=== PATIENT | female | born 1955 | race Caucasian/White ===

== ENCOUNTER 2020-03-12 10:18 | Emergency (ER) | payer OTHER, SELFPAY ==
--- NOTE | ~2020-03-12 | XR_ITS ---
XR finger 3rd RT min 2V DATE: 03/12/2020 10:39 INDICATION: Third digit injury, pain TECHNIQUE: 4 views COMPARISON: None FINDINGS: Osteoarthritic changes are noted at the distal interphalangeal joint of the third digit] pa rticularly severely at the distal interphalangeal joint of the fourth digit. No fracture or dislocation, periosteal reaction or bone destruction. No radiopaque soft tissue foreig n body. IMPRESSION: Osteoarthritis Reviewed, dictated and finalized at location A. IMPRESSION: Osteoarthritis
[2020-03-12 10:30] VITALS: BP 143/51; PULSE 93; RESP 18; TEMP 36.6; O2SAT 100
--- NOTE | 2020-03-12 10:32 | ED.UPPEXIN ---
HPI - Extremity Injury (Upper) General Chief Complaint: Extremity Injury, Upper Stated Complaint: right finger sprain Time Seen by Provider: 03/12/20 10:43 Source: patient and RN notes reviewed Mode of arrival: ambulatory Limitations: no limitations History of Present Illness HPI narrative: 65-year-old female presents with concern for finger injury to the third digit of her right hand. Reports yesterday she was talking in a slip cover on a recliner with the elastic bend her finger, possibly backwards. Reports pain, swelling, deformity at the tip of the third digit. Reports history of osteoarthritis, has joint deformities and some digits, however reports she does not typically have a deformity in the third digit of the right hand. Reports she took ibuprofen one time, denies other interventions MD complaint: injury to: right and hand Related Data Allergies Allergy/AdvReac Type Severity Reaction Status Date / Time adhesive Allergy Mild RASH-TO Verified 10/20/19 13:48 TAPE Sulfa (Sulfonamide Allergy Unknown Skin Verified 10/20/19 13:48 Antibiotics) Reaction Review of Systems Review of Systems: Narrative: SKIN: Reports redness to the tip of the third digit of the right hand MUSCULOSKELETAL: Reports pain, deformity to the tip of the third digit of the right hand, reports inability to move the finger at the DIP joint NEUROLOGIC: Reports some numbness to the tip of the third digit of the right hand All systems reviewed & are unremarkable except as noted in HPI and below PMFSH Past Medical History Medical History (Updated 03/12/20 @ 10:52 by Mahsa Hernández NP) Urge incontinence Social History Social History Smoking status: Never smoker Alcohol intake: current Comments At time of signature, agree with nursing past medical, surgical, social and family history. There is no relevant family history pertinent to the presenting complaint Exam Narrative: Exam Narrative: GENERAL: Well-appearing, well-nourished, and in no acute distress. HEAD: Normocephalic EYES: PERRLA, conjunctivae clear NECK: Supple. CHEST: Speaks in full sentences. No respiratory distress. HEART: Regular rate and rhythm. Normal and equal peripheral pulses. EXTREMITIES: Right third digit of hand has normal strength and sensation. DIP joint in a flexed position with erythema mild edema at the joint. No clubbing, cyanosis, or edema noted. No tenderness. Skin intact. Normal digital cascade with flexion of fingers, median, ulnar and radial nerve intact. Normal sensation of side of finger. Can perform 'okay' sign, 'cross over finger test of index and middle fingers' and 'thumbs up' sign. No scissoring. Normal thumb opposition. Good capillary refill and radial pulse. Distal capillary refill ?3 seconds. SKIN: Warn, dry, intact, pink. No rash NEURO: Alert and oriented x3. PSYCH: Normal mood and affect Course Course Emergency Course: Patient to wear splint, elevate, ice, use ibuprofen and follow-up with her primary care provider or specialist if deformity and decreased range of motion continues. Patient is aware of diagnosis, understands and agrees to treatment plan. Anticipatory guidance given. Patient agrees to follow-up as directed and is aware of reasons to seek care at the emergency department. Portions of this record may have been created with voice recognition software Vital Signs Vital signs: Vital Signs Temperature 97.9 F 03/12/20 10:30 Pulse Rate 93 03/12/20 10:30 Respiratory Rate 18 03/12/20 10:30 Blood Pressure 143/51 H 03/12/20 10:30 Pulse Oximetry 100 03/12/20 10:30 Temperature 97.9 F 03/12/20 10:30 Pulse Rate 93 03/12/20 10:30 Respiratory Rate 18 03/12/20 10:30 Blood Pressure 143/51 H 03/12/20 10:30 Pulse Oximetry 100 03/12/20 10:30 Reviewed. MDM - Extremity Injury (Upper) Imaging Data My impression: Images reviewed, interpreted by radiolo
== END 2020-03-12 11:00 | disposition home or self-care (01) ==
PROVIDERS: Emergency Provider Nurse Practitioner; PCP Family Medicine
DX: S04 Injury of cranial nerve (principal); X50.9XXA Other and unspecified overexertion or strenuous movements or postures, initial encounter; E78.00 Pure hypercholesterolemia, unspecified; E03.9 Hypothyroidism, unspecified; F32.9 Major depressive disorder, single episode, unspecified
CPT/HCPCS: 29130; 73140; 99213; G0463

== ENCOUNTER 2020-06-22 07:09 | Outpatient (RCR) | payer OTHER, SELFPAY ==
--- NOTE | 2020-06-22 08:27 | OTOPEVAL ---
OCCUPATIONAL THERAPY EVALUATION REPORT AND DISCHARGE NOTE Lori presents to outpatient OT with right MF extension lag. She is s/p 6 weeks of splinting (splinting ended mid-April). Passively she has hyperextension at the DIP, but at rest she has about 30* extension lag. Issued strengthening exercises for the extensor digitorum and interosseus muscles to help facilitate increased extension at the DIP and through the extensor mechanism. Guarded rehabilitation potential as she may have an overstretched tendon at the DIP. Discharging the patient with HEP. Patient is in agreement with discharge today. She is independent with strengthening HEP. Thank you for referring Lori Linton [facility].?No care plan initiated as she is being discharged with HEP. Please review, sign, date and return this discharge note NAYE. I agree with and certify that the following plan of care is medically necessary. Referring Physician Date Referring Provider: Jordan Knowles MD *OT Outpatient Evaluation Start: 06/22/20 07:28 Therapy Assessment Status Assessment Status Assessment Status Evaluation Outpatient Past Medical History Past Medical History Source of Past Medical History Patient Cardiovascular History Hx Hypercholesterolemia Yes Musculoskeletal History Hx Arthritis Yes Hx Fractures Yes: Right wrist Hx Osteoporosis Yes Endocrine History Hx Hypothyroidism Yes Reproductive History Hx Post Menopausal Yes Psychosocial History Hx Depression Yes Evaluation Information Problem Diagnosis Non-bony mallet finger, right 3rd digit Onset 03/11/2020 Subjective Information Patient reports that after the Query Text:As Reported By Patient/ initial injury she wore a Family splint on the DIP that held the joint in extension x6 weeks. She does note that there was a 7-10 day delay between the initial injury and receiving the splint. She states she did not have any therapy after this. She states that functionally the finger gets in the way when she tries to use her right, dominant hand to grab objects. Pain Assessment Timing of Pain Assessment Timing of Pain Assessment Assessment Pain Scale Pain Scale Used Numeric (1 - 10) Self Report Pain Assessment Right Finger, Middle Reported Pain Level 0 Pain Frequency Chronic,Intermittent Lowest Pain Intensity 0 Greatest Pain Intensity 3 Pain Aggravating Factors ADL's Pain Score Pain Score 0: Self Report Upper Extremity Range of Motion
== END 2020-06-23 09:35 | disposition home or self-care (01) ==
LOC: ANHOT 07:09
PROVIDERS: PCP Family Medicine; Visit Provider Plastic Surgery
DX: M20.011 Mallet finger of right finger(s) (principal)
CPT/HCPCS: 97110; 97165

== ENCOUNTER 2020-09-08 13:52 | Outpatient (CLI) | payer OTHER, SELFPAY ==
--- NOTE | ~2020-09-08 | DEXA_ITS ---
Bone Density Report Name: Lori Linton Age: 65 Sex: Female Ethnicity: White Date of : 1955 Indication: osteopenia; prior fracture; cancer; Referring Provider: JORDAN WOODALL Study: Bone densitometry was performed. Exam Date: September 08, 2020 Accession number: [id number] Bone Density: Region BMD T-score Z-score Classification AP Spine (L1-L4) 0.925 -1.1 0.6 Osteopenia Femoral Neck (Left) 0.508 -3.1 -1.6 Osteoporosis Total Hip (Left) 0.698 -2.0 -0.8 Osteopenia Total Hip Bilateral Avg 0.721 -1.8 -0.6 Osteopenia Femoral Neck (Right) 0.572 -2.5 -1.0 Osteoporosis Total Hip (Right) 0.743 -1.6 -0.4 Osteopenia World Health Organization criteria for BMD impression classify patients as: Normal (T-score at or above -1.0), Osteopenia (T-score between -1.0 and -2.5), or Osteoporosis (T-score at or below -2.5). 10-year Fracture Risk: FRAX not reported because: Some T-score for Spine Total or Hip Total or Femoral Neck at or below -2.5 Previous Exams: Region Exam Age BMD T-score BMD Change BMD Change Date g/cm2 vs Baseline vs Previous AP Spine(L1-L4) 09/08/2020 65 0.925 -1.1 -0.129(-12.3%) 0.005(0.6%) 05/11/2015 60 0.920 -1.2 -0.134(-12.7%) -0.113(-10.9%) 07/24/2009 54 1.033 -0.1 -0.022(-2.1%) 0.021(2.1%) 07/07/2006 51 1.012 -0.3 -0.043(-4.1%)* -0.043(-4.1%)* 06/28/2004 49 1.055 0.1 Total Hip(Left) 09/08/2020 65 0.698 -2.0 -0.106(-13.2%) -0.064(-8.4%)* 05/11/2015 60 0.762 -1.5 -0.042(-5.2%)# 0.037(5.1%)# 07/24/2009 54 0.725 -1.8 -0.079(-9.9%)* -0.053(-6.8%)* 07/07/2006 51 0.777 -1.4 -0.027(-3.3%) -0.027(-3.3%) 06/28/2004 49 0.804 -1.1 Total Hip(Right) 09/08/2020 65 0.743 -1.6 -0.061(-7.6%)# -0.033(-4.2%)* 05/11/2015 60 0.775 -1.4 -0.028(-3.5%)# 0.014(1.8%)# 07/24/2009 54 0.762 -1.5 -0.042(-5.2%)* -0.039(-4.8%)* 07/07/2006 51 0.801 -1.2 -0.003(-0.4%) -0.003(-0.4%) 06/28/2004 49 0.804 -1.1 *Denotes significance at 95% confidence level, LSC for AP Spine = 0.022 g/cm2, LSC for Total Hip = 0.027 g/cm2 Clinical Information Provided by Patient: Has had a low trauma fracture Has used the following medications: Vitamin D Has the following medical conditions: Cancer Patient maximum height was 64.5 Menopause Age: 47 Drinks caffeinated beverages Onset of menses at age 13 Number of children 2 Impression: The patient has established osteoporosis, based on
--- NOTE | ~2020-09-08 | MM_ITS ---
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 CAD analysis was submitted and interpreted. COMPARISON: 05/04/2018 bilateral diagnostic digital mammogram 05/29/2017, 05/17/2016 bilateral digital screening mammogram examinations BREAST PARENCHYMAL COMPOSITION: There are scattered areas of fibroglandular density. FINDINGS: Postoperative scarring and retraction secondary to right partial mastectomy. No interval suspicious mass, new architectural distortion, malignant calcification, skin thickening o r new retraction is evident. Minimal benign calcification. IMPRESSION: 1. No mammographic evidence of malignancy or significant change since 05/04/2018 over 05/17/2016 2. Routine annual mammographic screening is recommended. BI-RADS Category 2: Benign finding(s). Reviewed, dictated and finalized at location A. FIGHTER
== END 2020-09-08 13:53 | disposition home or self-care (01) ==
LOC: ANHIMG 13:57
PROVIDERS: PCP Family Medicine; Visit Provider Family Medicine
DX: C50.911 Malignant neoplasm of unspecified site of right female breast (principal); R92.0 Mammographic microcalcification found on diagnostic imaging of breast; M81.0 Age-related osteoporosis without current pathological fracture; M16.0 Bilateral primary osteoarthritis of hip; Z90.11 Acquired absence of right breast and nipple
CPT/HCPCS: 77062; 77066; 77080; G0279

== ENCOUNTER 2021-05-18 12:15 | Emergency (ER) | payer MEDICARE, SELFPAY ==
[2021-05-18 12:22] VITALS: BP 147/68; PULSE 107; RESP 20; TEMP 36.5; O2SAT 100
--- NOTE | 2021-05-18 12:56 | ED.URI ---
HPI - URI/Sore Throat General Chief Complaint: Upper Respiratory Infection Stated Complaint: cough Time Seen by Provider: 05/18/21 12:48 Source: patient and RN notes reviewed Mode of arrival: ambulatory Limitations: no limitations History of Present Illness HPI Narrative: Patient presents today with a 14-day history of rhinorrhea, sinus pressure, cough, sneezing. Denies fever or shortness of breath. No history of asthma or COPD. She has been occasionally taking Benadryl with mild relief. She recently had a negative COVID-19 test. She has been vaccinated against COVID-19. No recent antibiotic use. MD elicited complaint: rhinorrhea, nasal congestion and sinus pain Related Data Allergies Allergy/AdvReac Type Severity Reaction Status Date / Time adhesive Allergy Mild RASH-TO Verified 03/28/21 09:57 TAPE Sulfa (Sulfonamide Allergy Unknown Skin Verified 03/28/21 09:57 Antibiotics) Reaction alendronate sodium AdvReac Severe heartburn, Verified 03/28/21 09:57 [From Fosamax] muscle aches Review of Systems Review of Systems: CONSTITUTIONAL: Denies body aches, fever, chills, or sweats. EYES: Denies visual changes, redness, or discharge. ENT: Denies sore throat, or otalgia.+ Congestion, rhinorrhea, sinus pressure, sneezing CARDIOVASCULAR: Denies chest pain, palpitations, or edema. RESPIRATORY: Denies dyspnea.+ Cough GASTROINTESTINAL: Denies abdominal pain, nausea, vomiting, or diarrhea. GENITOURINARY: Denies dysuria or hematuria. SKIN: Denies rash, itching, or wounds. MUSCULOSKELETAL: Denies back pain, joint pain, or myalgia. NEUROLOGIC: Denies headache, numbness, tingling, or weakness. PSYCH: Denies depression or anxiety. [facility] Past Medical History Medical History (Updated 05/18/21 @ 12:59 by Salima Ortiz, VIDEO GAME TESTER, ) Osteoporosis Urge incontinence Family History Family History Father Family history of elevated blood lipids Family history of lung cancer Hypertension Family history of cardiovascular disease Mother Hypertension Family history of elevated blood lipids Family history of cardiovascular disease Social History Social History Alcohol intake: current Spiritual care concerns: No Comments At time of signature, I have reviewed and agree with nursing past medical, surgical, social and family history unless otherwise noted. Please see nursing chart for further information. There is no relevant family history pertinent to the presenting complaint Exam Narrative: GENERAL: Well-appearing, well-nourished, and in no acute distress. HEAD: Normocephalic, atraumatic. EYES: EOMI. No redness or drainage. Conjunctivae normal. ENT: Mucous membranes pink and moist. Nares mildly congested. No rhinorrhea. TMs normal bilaterally. Throat normal. Uvula midline. Mild tenderness to the frontal maxillary sinuses. NECK: Normal AROM. Supple. No lymphadenopathy. CHEST: No respiratory distress. Clear to auscultation. HEART: Regular rate and rhythm. No murmur appreciated. Normal peripheral pulses. EXTREMITIES: Normal range of motion. No edema. SKIN: Warm, dry, no rash. Capillary refill normal. Normal skin turgor. NEURO: No focal deficits. Alert and oriented x3. Gait steady. PSYCH: Normal affect. No signs of depression or anxiety. Course Vital Signs Vital signs: Vital Signs Temperature 97.7 F 05/18/21 12:22 Pulse Rate 107 H 05/18/21 12:22 Respiratory Rate 20 05/18/21 12:22 Blood Pressure 147/68 H 05/18/21 12:22 Pulse Oximetry 100 05/18/21 12:22 Temperature 97.7 F 05/18/21 12:22 Pulse Rate 107 H 05/18/21 12:22 Respiratory Rate 20 05/18/21 12:22 Blood Pressure 147/68 H 05/18/21 12:22 Pulse Oximetry 100 05/18/21 12:22 Reviewed. Pt has been instructed to follow up with her PCP regarding her elevated blood pressure today. MDM - URI/Sore Throat Differe
== END 2021-05-18 13:04 | disposition home or self-care (01) ==
PROVIDERS: Emergency Provider Nurse Practitioner; PCP Family Medicine
DX: J32.9 Chronic sinusitis, unspecified (principal); M81.0 Age-related osteoporosis without current pathological fracture
CPT/HCPCS: 99213; G0463

== ENCOUNTER 2021-10-01 10:02 | Outpatient (CLI) | payer MEDICARE, SELFPAY ==
--- NOTE | ~2021-10-01 | MM_ITS ---
EXAMINATION: MM screening narciso BI w clyde HISTORY: Screening TECHNIQUE: Craniocaudal and mediolateral oblique 3-D tomosynthesis images were obtained and synthetic 2-D images were generated. CAD analysis was submitted and interpreted. COMPARISON: Comparison to multiple prior studies sequentially, with oldest reviewed study dated 05/11. BREAST PARENCHYMAL COMPOSITION: Breast composed of scattered areas of fibroglandular density. FINDINGS: There is no evidence of suspicious mass, calcification, or architectural distortion to sugg est malignancy in either breast. There has been no suspicious interval change. IMPRESSION: 1. No mammographic evidence of malignancy. 2. Recommend routine screening mammography in one year. BI-RADS Category 1: Negative Reviewed, dictated and finalized at location A. PICKER
== END 2021-10-01 10:03 | disposition home or self-care (01) ==
LOC: ANHIMG 10:05
PROVIDERS: PCP Nurse Practitioner; Visit Provider Nurse Practitioner
DX: Z12.31 Encounter for screening mammogram for malignant neoplasm of breast (principal)
CPT/HCPCS: 77063; 77067

== ENCOUNTER → 2021-10-03 11:08 | Outpatient (CLI) | payer MEDICARE, SELFPAY ==
--- NOTE | ~2021-10-03 | US_ITS ---
EXAMINATION: US pelvic complete w TV DATE: 10/03/2021 11:33 INDICATION: Pelvic pain TECHNIQUE: Multiple transabdominal and endovaginal sonographic images of the pelvis were obtained. COMPARISON: None. FINDINGS: The uterus measures 6.9 x 3.3 x 4.2 cm. The endometrial complex measures 6 mm. There is flu id in the endometrial canal. The right ovary measures 1.3 x 0.7 x 1.1 cm. The left ovary measures 2.6 x 2.4 x 1.5 cm. There is normal vascular flow in the ovaries. There is no free fluid in the pelvis. IMPRESSION: 1. No sonographic correlate for the patient's symptoms. 2. Small amount of fluid within the endometrial canal of unclear etiology or significance. Reviewed, dictated and finalized at location A. WORKER IMPRESSION: 1. No sonographic correlate for the patient's symptoms. 2. Small amount of fluid within the endometrial canal of unclear etiology or si gnificance.
== END ==
PROVIDERS: PCP Nurse Practitioner; Visit Provider Nurse Practitioner
DX: R10.2 Pelvic and perineal pain (principal)
CPT/HCPCS: 76830; 76856

== ENCOUNTER 2021-10-22 14:55 | Outpatient (CLI) | payer MEDICARE, SELFPAY ==
--- NOTE | ~2021-10-22 | CT_ITS ---
EXAMINATION: CT abdomen pelvis wo con DATE: 10/22/2021 15:12 INDICATION: Right pelvic pain and hematuria TECHNIQUE: Computed tomography (CT) of the abdomen and pelvis was performed without intravenous contr ast. The dose-length product (DLP) was 303.13 mGy-cm. Automated exposure control and iterative recons truction technique were employed. COMPARISON: None FINDINGS: The lung bases are clear. The heart size is normal. There is a moderate-sized sliding hiata l hernia. Punctate calcifications in an otherwise normal spleen likely represent healed granulomatous disease. The liver, pancreas, gallbladder, and right adrenal gland are normal. There is a 1.5 cm low -density mass of the left adrenal gland, consistent with an adenoma. The kidneys are unremarkable. No stones are identified in the kidneys, ureters, or bladder. There is no hydronephrosis or hydroureter . No pathologically enlarged abdominal or pelvic lymph nodes are identified. There is no free intrape ritoneal gas or evidence of bowel obstruction. There is mild lumbar spondylosis. IMPRESSION: 1. No CT correlate for the patient's symptoms. Reviewed, dictated and finalized at location B. PMENT MAN
== END 2021-10-22 14:56 | disposition home or self-care (01) ==
LOC: ANHIMG 14:57
PROVIDERS: PCP Nurse Practitioner; Visit Provider Nurse Practitioner
DX: R10.2 Pelvic and perineal pain (principal); R31.9 Hematuria, unspecified
CPT/HCPCS: 74176

== ENCOUNTER → 2022-03-20 09:34 | Outpatient (CLI) | payer MEDICARE, SELFPAY ==
--- NOTE | ~2022-03-20 | XR_ITS ---
XR foot RT min 3V DATE: 03/20/2022 10:05 INDICATION: Right heel pain TECHNIQUE: 4 views COMPARISON: None FINDINGS: Slight plantar calcaneal enthesopathy. No fracture or dislocation, periosteal reaction or b one destruction of the right foot. Osteopenia. IMPRESSION: Slight plantar calcaneal enthesopathy Osteopenia Reviewed, dictated and finalized at location B.
== END ==
PROVIDERS: PCP Nurse Practitioner; Visit Provider Nurse Practitioner
DX: M85.871 Other specified disorders of bone density and structure, right ankle and foot (principal); M77.31 Calcaneal spur, right foot
CPT/HCPCS: 73630

== ENCOUNTER 2022-06-22 12:59 | Emergency (ER) | payer MEDICARE, SELFPAY ==
--- NOTE | ~2022-06-22 | XR_ITS ---
XR foot RT min 3V DATE: 06/22/2022 13:48 INDICATION: Diffuse foot pain for 3 months TECHNIQUE: 4 views COMPARISON: None FINDINGS: No fracture or dislocation, periosteal reaction or bone destruction. Joint spaces are prese rved. No erosive change. IMPRESSION: Negative Reviewed, dictated and finalized at location A. IMPRESSION: Negative
[2022-06-22 13:09] VITALS: BP 146/68; PULSE 91; RESP 16; TEMP 36.5; O2SAT 99
--- NOTE | 2022-06-22 13:14 | ED.EXTPRO ---
HPI - Extremity Problem General Chief complaint: Extremity Injury, Lower Stated complaint: right foot pain Time Seen by Provider: 06/22/22 14:04 Source: patient and RN notes reviewed Mode of arrival: ambulatory Limitations: no limitations History of Present Illness HPI Narrative: 67-year-old female presents with concern for foot pain. She reports she has had pain since March this started in her heel and has now moved to the lateral foot. Reports she had an x-ray and was told she has osteoporosis. She reports she has an appointment with a vendor management associate, however she began having worsening pain, swelling. She denies any new injury MD Complaint: extremity pain Related Data Allergies Allergy/AdvReac Type Severity Reaction Status Date / Time adhesive Allergy Mild RASH-TO Verified 06/22/22 13:10 TAPE Sulfa (Sulfonamide Allergy Unknown Skin Verified 06/22/22 13:10 Antibiotics) Reaction alendronate sodium AdvReac Severe heartburn, Verified 06/22/22 13:10 [From Fosamax] muscle aches Review of Systems Review of Systems: CONSTITUTIONAL: Denies malaise, chills, sweats, or fever. CARDIOVASCULAR: Denies chest pain, palpitations, or edema. RESPIRATORY: Denies cough or dyspnea. SKIN: Denies rash or itching, bruising, redness MUSCULOSKELETAL: Reports right foot pain and swelling NEUROLOGIC: Denies numbness, weakness All systems reviewed & are unremarkable except as noted in HPI and below PMFSH Past Medical History Medical History Osteoporosis Urge incontinence Family History Family History Father Family history of elevated blood lipids Family history of lung cancer Hypertension Family history of cardiovascular disease Mother Hypertension Family history of elevated blood lipids Family history of cardiovascular disease Social History Social History Alcohol intake: current Spiritual care concerns: No Comments At time of signature, agree with nursing past medical, surgical, social and family history. There is no relevant family history pertinent to the presenting complaint Exam Narrative: GENERAL: Well-appearing, well-nourished, and in no acute distress. HEAD: Normocephalic, atraumatic. EYES: PERRLA, conjunctivae clear NECK: Supple. CHEST: Speaks in full sentences. No respiratory distress. HEART: Regular rate and rhythm. Normal and equal peripheral pulses. EXTREMITIES: Right ankle, foot, digits have grossly normal strength and sensation, grossly normal range of motion. Mild medial edema without erythema or ecchymosis. 5/5 strength with ankle or digit flexion and extension. Normal sensation with sensitivity to light touch and pain. Medial foot tenderness. No open wounds, no skin tenting, no devitalized tissue or atrophy, no trophic changes, no obvious deformity, alignment normal, nearby joints and structures intact. Distal pulses palpable and equal bilaterally, skin warm, dry, pink. Capillary refill less than 3 seconds. SKIN: Warm, dry, no rash. NEURO: Alert and oriented x3. PSYCH: Normal mood and affect Course Course Emergency Course: Patient is aware of diagnosis, understands and agrees to treatment plan. Anticipatory guidance given. Patient agrees to follow-up as directed and is aware of reasons to seek care at the emergency department. Portions of this record may have been created with voice recognition software Level of Care: Express Care Visit Vital Signs Vital signs: Vital Signs Temperature 97.7 F 06/22/22 13:09 Pulse Rate 91 06/22/22 13:09 Respiratory Rate 16 06/22/22 13:09 Blood Pressure 146/68 H 06/22/22 13:09 Pulse Oximetry 99 06/22/22 13:09 Oxygen Delivery Room Air 06/22/22 13:09 Temperature 97.7 F 06/22/22 13:09 Pulse Rate 91 06/22/22 13:09 Respiratory Rate 16 06/22/22 13:09 Bl
== END 2022-06-22 14:06 | disposition home or self-care (01) ==
PROVIDERS: Emergency Provider Nurse Practitioner
DX: M79.671 Pain in right foot (principal); M81.0 Age-related osteoporosis without current pathological fracture
CPT/HCPCS: 73630; 99213; G0463

== ENCOUNTER 2023-10-14 12:49 | Outpatient (CLI) | payer MEDICARE, SELFPAY ==
--- NOTE | ~2023-10-14 | MM_ITS ---
EXAMINATION: MM screening narciso BI w clyde HISTORY: Screening TECHNIQUE: Craniocaudal and mediolateral oblique 3-D tomosynthesis images were obtained and synthetic 2-D images were generated. CAD analysis was submitted and interpreted. COMPARISON: Comparison to multiple prior studies sequentially, with oldest reviewed study dated 05/11. BREAST PARENCHYMAL COMPOSITION: Not dense: There are scattered areas of fibroglandular density.. FINDINGS: There is no evidence of suspicious mass, calcification, or architectural distortion to sugg est malignancy in either breast. There has been no suspicious interval change. IMPRESSION: 1. No mammographic evidence of malignancy. 2. Recommend routine screening mammography in one year. BI-RADS Category 1: Negative Reviewed, dictated and finalized at location A. UTING CONSULTANT
--- NOTE | ~2023-10-14 | DEXA_ITS ---
Bone Density Report Name: EFREN ALONSO Age: 68 Sex: Female Ethnicity: White Date of : 1955 Indication: osteopenia; monitoring treatment; postmenopausal Referring Provider: DINORAH VARGAS Study: Bone densitometry was performed. Exam Date: October 14, 2023 Accession number: [id number] Bone Density: Region BMD T-score Z-score Classification AP Spine(L1-L4) 0.952 -0.9 1.1 Normal Femoral Neck (Left) 0.551 -2.7 -1.0 Osteoporosis Total Hip (Left) 0.785 -1.3 0.1 Osteopenia Femoral Neck (Right) 0.568 -2.5 -0.9 Osteoporosis Total Hip (Right) 0.785 -1.3 0.1 Osteopenia Total Hip Mean 0.785 -1.3 0.1 Osteopenia World Health Organization criteria for BMD impression classify patients as: Normal (T-score at or above -1.0), Osteopenia (T-score between -1.0 and -2.5), or Osteoporosis (T-score at or below -2.5). 10-year Fracture Risk: FRAX not reported because: Some T-score for Spine Total or Hip Total or Femoral Neck at or below -2.5 Treated for osteoporosis Previous Exams: Region Exam Age BMD T-score BMD Change BMD Change Date g/cm2 vs Baseline vs Previous AP Spine (L1-L4) 10/14/2023 68 0.952 -0.9 0.032 (3.5%)* 0.027 (2.9%)* 09/08/2020 65 0.925 -1.1 0.005 (0.6%) 0.005 (0.6%) 05/11/2015 60 0.920 -1.2 Total Hip(Left) 10/14/2023 68 0.785 -1.3 0.024 (3.1%) 0.087 (12.5%)* 09/08/2020 65 0.698 -2.0 -0.064 (-8.4%) -0.064 (-8.4%) 05/11/2015 60 0.762 -1.5 Total Hip(Right) 10/14/2023 68 0.785 -1.3 0.010 (1.3%) 0.042 (5.7%)* 09/08/2020 65 0.743 -1.6 -0.033 (-4.2%) -0.033 (-4.2%) 05/11/2015 60 0.775 -1.4 *Denotes significance at 95% confidence level, LSC for AP Spine = 0.022 g/cm2, LSC for Total Hip = 0.027 g/cm2 Clinical Information Provided by Patient: Is being treated for osteoporosis Has used the following medications: Vitamin D Patient maximum height was 64.5 Menopause Age: 47 No regular weight bearing exercise Drinks caffeinated beverages Onset of menses at age 14 Number of children 2 Missed period for more than 6 months in a row Impression: The patient has osteoporosis, based on the Left Femoral Neck T-score. No significant bone loss was observed. Discussion: PATIENT UNDER TREATMENT WITH NO SIGNIFICANT BMD LOSS SINCE LAST EXAM. In an untreated patient, BMD typically declines with age. A lack of decline or gain is usually a sign that treatment is efficacious and fracture risk i
== END 2023-10-14 12:50 | disposition home or self-care (01) ==
PROVIDERS: PCP Family Medicine; Visit Provider Physician Assistant
DX: Z12.31 Encounter for screening mammogram for malignant neoplasm of breast (principal); M81.0 Age-related osteoporosis without current pathological fracture; M85.852 Other specified disorders of bone density and structure, left thigh; M85.851 Other specified disorders of bone density and structure, right thigh
CPT/HCPCS: 77063; 77067; 77080

== ENCOUNTER 2024-10-19 14:29 | Outpatient (CLI) | payer MEDICARE, SELFPAY | END 2024-10-19 14:30 | disposition home or self-care (01) | LOC: ANHIMG 14:30 | PROVIDERS: PCP Family Medicine; Visit Provider Student in an Organized Health Care Education/Training Program | DX: Z12.31 Encounter for screening mammogram for malignant neoplasm of breast (principal) | CPT/HCPCS: 77063; 77067 ==

== ENCOUNTER 2025-02-15 12:48 | Outpatient (CLI) | payer MEDICARE, SELFPAY ==
--- NOTE | ~2025-02-15 | CT_ITS ---
EXAMINATION: CT sinus wo con DATE: 02/15/2025 13:06 INDICATION: Chronic maxillary sinusitis TECHNIQUE: Computed tomography (CT) of the paranasal sinuses was performed without intravenous contra st. Coronal reconstructions were obtained. Automated exposure control and iterative reconstruction te chnique were employed. The dose-length product was 287.09 mGy-cm. COMPARISON: None FINDINGS: There is minimal mucoperiosteal thickening at the bilateral ethmoid sinuses. The bilateral frontal, s phenoid and maxillary sinuses are normal. Bilateral ostiomeatal units are patent. Nasal septum is mid line. There is alex bullosa of the right middle turbinate. Mastoid air cells and middle ear cavitie s are clear. Orbits are normal. IMPRESSION: 1. Minimal mucoperiosteal thickening at the bilateral ethmoid sinuses. Reviewed, dictated and finalized at location B.
== END 2025-02-15 12:49 | disposition home or self-care (01) ==
LOC: MICIMG 12:48
PROVIDERS: PCP Family Medicine; Visit Provider Family Medicine
DX: J32.0 Chronic maxillary sinusitis (principal); J32.2 Chronic ethmoidal sinusitis
CPT/HCPCS: 70486

== ENCOUNTER 2025-03-25 07:49 | Outpatient (CLI) | payer MEDICARE, SELFPAY ==
--- OUTSIDE RECORDS SUMMARY | 2025-03-25 07:52 | XMS_ITS | Encounter Summary ---
Author Organization [facility] Address [address] [place] [address] Care Team Providers Care Wrapping Checker Name Role Phone Cynthia Cheung NP Primary Care Provider [phone] [phone] Baldomero Gibson MD Primary Care Provider [phone]- [phone] Encounter Details Date Type Department Care Team (Late st Contact Info) Description 10/12/2021 [place] Message Enc [facility] Family Medicine [facility] [address] [id number] Cynthia Cheung NP [address] [address] follow up Social History Tobacco Use Types Packs/Day Years Used Date Smoking Tobacco: Never Smokeless Tobacco: Never Alcohol Use Standard Drinks/Week Comments Not Currently 0 (1 standard drink = 0.6 oz pur e alcohol) PHQ-2 Answer Date Recorded PHQ-2 Score - If the patient scores above 3, please move on to questions 3-9 0 09/19/2021 Comments No Sex and Gender Information Value Date Recorded Sex Assigned at Not on file Legal Sex Female 12:53 PM CDT Gender Identity Female 09/26/2021 1:17 PM ACCOUNT MANAGER B2B Sexual Orientation Not on file COVID-19 Exposure Response Date Recorded In the last 10 days, have yo u been in contact with someone who was confirmed or suspected to have Coronavirus/COVID-19? No / Unsure 09/26/2021 1:41 PM ACCOUNT MANAGER B2B documented as of this encounter Plan of Treatment Not on file documented as of this encounter Visit Diagnoses Not on filedocumented in this encounter Additional Health Concerns Assessment Noted Time PHQ-9 Depression Total Score: 0 09/19/19 11:52 AM ACCOUNT MANAGER B2B documented as of this encounter Care Teams Wrapping Checker Relationship Specialty Start Date End Date Cynthia Cheung NP [address] [place] [address] PCP - General NURSE PRACTITIONER 08/30/21 03/17/23 Baldomero Gibson MD [address] [place] [address] PCP - General FAMILY PRACTICE 03/18/23 documented as of this encounter
--- OUTSIDE RECORDS SUMMARY | 2025-03-25 07:52 | XMS_ITS | Clinical Summary ---
Author Organization [facility] Address [address] [place] [address] Care Team Providers Care Drafting Clerk Name Role Phone Baldomero Gibson MD Primary Care Provider [phone]- [phone] Allergies Active Allergy Reactions Criticality Noted Date Comments Alendronate Sodium Joint Pain,Leg Pain 09/26/19 22 Sulfa Antibiotics Other (see comment) 2 Tape Itching,Rash Low 09/26/2021 Medications buPROPion XL 300 MG 24 hr tablet Take 1 tablet (300 mg total) by mouth daily. 2 Active citalopram 20 MG tablet Take 1 tablet (20 mg total) by mouth daily. 2 Active vitamin D2, ergocalciferol, (DRISDOL) 1.25 mg capsuleIndications: Vitamin D deficiency TAKE 1 CAPSULE BY MOUTH EVERY 7 DAYS 13 capsule 2 3 Active levothyroxine (SYNTHROID) 50 MCG tabletIndications:A cquired hypothyroidism TAKE 1 TABLET BY MOUTH DAILY 100 tablet 2 3 Active simvastatin (ZOCOR) 20 MG tabletIndications:M ixed hyperlipidemia TAKE 1 TABLET BY MOUTH DAILY 100 tablet 2 3 Active Active Problems Problem Noted Date Diagnosed Date Pain of right heel 03/20/2022 Anxiety 09/27/2021 Osteoporosis 09/27/2021 Hx of breast cancer 09/27/2021 Hyperlipemia 09/27/2021 Hypothyroidism 09/27/2021 Resolved Problems Problem Noted Date Diagnosed Date Resolved Date Osteopenia 09/27/2021 02/05/2023 Immunizations Immunization Administration Dates Next Due Hepatitis B (Generic: Adult) 12/25/2004,06/19/20 04,05/22/2004 Influenza (Generic) 06/14/2019 Pneumococcal (Pneumovax 23) 09/26/2021 Tdap (Generic) 04/08/2016,06/19/2006 Zoster (Zostavax) 93902 Unt/0.65Ml 06/02/2017 Family History Medical History Relation Comments Heart Father Heart Mother Heart Disease Mother Hypertension Mother Vision loss Mother Relation Status Comments Father Mother Alive Social History Tobacco Use Types Packs/Day Years Used Date Smoking Tobacco: Never Passive Smoke Exposure: Past Smokeless Tobacco: Never Tobacco Cessation:Counseling Given: No Alcohol Use Standard Drinks/Week Comments Not Currently 0 (1 standard drink = 0.6 oz pur e alcohol) PHQ-2 Answer Date Recorded Patient Health Questionnaire-2 Score 0 02/05/2023 Comments No Sex and Gender Information Value Date Recorded Sex Assigned at Not on file Legal Sex Female 12:53 PM CDT Gender Identity Female 09/26/2021 1:17 PM HEAT TREATING BLUER Sexual Orientation Not on file Last Filed Vital Signs Vital Sign Reading Time Taken Comments Blood Pressure 157/78 02/05/2023 2:40 PM CDT Pulse 92 02/05/2023 2:40 PM CDT Temperature 37.4 C (99.4 F) 02/05/2023 2:40 PM CDT Respiratory Rate 18 09/12/2022 8:35 AM HEAT TREATING BLUER Oxygen Saturation 100% 02/05/2023 2:40 PM CDT Inhaled Oxygen Concentration - - Weight 64 kg (141 lb) 02/05/2023 2:40 PM CDT Height 162.6 cm (5' 4) 09/12/2022 8:35 AM HEAT TREATING BLUER Body Mass Index 24.2 09/12/2022 8:35 AM HEAT TREATING BLUER Plan of Treatment Health Maintenance Due Date Last Done Comments Zoster Vaccines (2 of 3) 07/28/2017 06/02/2017 Pneumococcal Vaccine: 50+ Years (2 of 2 - PCV) 09/26/2022 09/26/2021 Annual Medicare Wellness Visit 01/23/2023 01/22/2022 COVID-19 Vaccine ( season) 2024 06/25/2021, 10/27/2020, 09/29/2020 PHQ-2 (Physician [place]) 08/18/2024 Colorectal Cancer Screening FIT-DNA (3 Years) 10/04/2024 10/04/2021, 10/04/2021 Mammogram Screening 10/11/2024 10/11/2022, 10/01/2021, 09/08/2020, Additional history exists DTaP, Tdap and Td Vaccines (3 - Td or Tdap) 04/08/2026 04/08/2016, 06/19/2006 RSV Immunization or 60+ Years (1 - 1-dose 75+ series) 01/02/2031 Colorectal Cancer Screening Colonoscopy (10 Years) Discontinued 08/25/2006 Hepatitis C Completed 02/19/2022 Dexa Scan (General) Completed 10/11/2022, 09/08/2020, 09/08/2020, Additional history exists Meningococcal B Vaccine Aged Out No l onger eligible based on patient's age to complete this topic Meningococcal Vaccine Aged Out No kenny wendi eligible based on patient's age to complete this topic RSV Immunizations Under 20 Months Aged Out No longer eligible based on patient's age to complete this topic Procedures Procedure Name Priority Date/Time Associated Diagnosis Comments BONE DENSITY/DEXA Routine 10/11/2022 1:3 7 PM HEAT TREATING BLUER Osteoporosis, unspecified osteoporosis type, unspecified pathological fracture presence MG SCREENING W KYUNG KARIN DIGI Routine 10/11/2022 1:34 PM HEAT TREATING BLUER Encounter for screening mammogram for malignant neoplasm of breast HEPATITIS C ANTIBODY W/RFX TO HCV RNA 02/19/2022 1:54 PM CDT COLOGUARD (EXACT SCIENCE) Routine 10/04/2021 6:45 PM HEAT TREATING BLUER Screen for colon cancer COLONOSCOPY GENERIC (SCAN ORDER) 08/25/2006 from Last 3 Months or Most Recently Relevant to Health Maintenance Results * BONE DENSITY/DEXA (10/11/2022 1:37 PM HEAT TREATING BLUER) Anatomical Region Laterality Modality Bone Mammography 10/11/2022 1:42 PM HEAT TREATING BLUER Impressions 10/11/2022 1:45 PM HEAT TREATING BLUER IMPRESSION: Lumbar spine: Lowest T score is -1.9 at L4.. Hips: Lowest T score is -2.9 at the left femoral neck. Severe loss of bone mineral density indicating osteoporosis. Frax: 10 year Probability of major osteoporotic fracture: 24%. 10 year Probability of hip fracture: 6.3%. Referred By: CYNTHIA CHEUNG Interpreted By: Ander Phillips MD, 10/11/2022 1:42 PM Narrative 10/11/2022 1:45 PM HEAT TREATING BLUER Examination: Bone Density Axial Exam Date/Time: 10/11/2022 1:30 PM Reason For Exam: Postmenopausal Comparison: None Findings: DEXA bone densitometry The bone mineral density (BMD) was determined by dual-energy x-ray absorptiometry, the results are as follows: Lumbar spine: L1: 1.015 (GM/SQCM). T score: 0.2. L2: 0.993 (GM/SQCM). T score: -0.3. L3: 1.005 (GM/SQCM). T score: -0.7. L4: 0.848 (GM/SQCM). T score: -1.9. L1-L4: 0.958 (GM/SQCM). T score: -0.8. Hips: Left femoral neck: 0.532 (GM/SQCM). T score: -2.9. Right femoral neck: 0.548 (GM/SQCM). T score: -2.7. Mean: 0.540 (GM/SQCM). T score: -2.8 Left proximal femur: 0.787 (GM/SQCM). T score:-1.3. Right proximal femur: 0.789(GM/SQCM). T score: -1.3. Mean: 0.788 (GM/SQCM). T score: -1.3. Procedure Note Ander Phillips MD - 10/11/2022 Examination: Bone Density Axial Exam Date/Time: 10/11/2022 1:30 PM Reason For Exam: Postmenopausal Comparison: None Findings: DEXA bone densitometry The bone mineral density (BMD) was determined bydual-energy x-ray absorptiometry, the results are as follows: Lumbar spine: L1: 1.015 (GM/SQCM). T score: 0.2. L2: 0.993 (GM/SQCM). T score: -0.3. L3: 1.005 (GM/SQCM). T score: -0.7. L4: 0.848 (GM/SQCM). T score: -1.9. L1-L4: 0.958 (GM/SQCM). T score: -0.8. Hips: Left femoral neck: 0.532 (GM/SQCM). T score: -2.9. Right femoral neck: 0.548 (GM/SQCM). T score: -2.7. Mean: 0.540 (GM/SQCM). T score: -2.8 Left proximal femur: 0.787 (GM/SQCM). T score:-1.3. Right proximal femur: 0.789(GM/SQCM). T score: -1.3. Mean: 0.788 (GM/SQCM). T score: -1.3. IMPRESSION: Lumbar spine: Lowest T score is -1.9 at L4.. Hips: Lowest T score is -2.9 at the left femoral neck. Severe loss ofbone mineral density indicating osteoporosis. Frax: 10 year Probability of major osteoporotic fracture: 24%. 10 year Probability of hip fracture: 6.3%. Referred By: CYNTHIA CHEUNG Interpreted By: Ander Phillips MD, 10/11/2022 1:42 PM Cynthia Cheung PUBLIC RELATIONS INTERN DEXA Final Res ult * MG SCREENING W KYUNG KARIN DIGI (10/11/2022 1:34 PM HEAT TREATING BLUER) Anatomical Region Laterality Modality Breast Bilateral Mammography 10/15/2022 7:09 AM HEAT TREATING BLUER Narrative 10/15/2022 7:11 AM HEAT TREATING BLUER Examination: Screening bilateral mammogram Exam Date/Time: 10/11/2022 12:51 PM Clinical history: Right DCIS status post lumpectomy 2001. No current complaints. Comparison: 10/01/2021 Technique: Digital screening mammography of both breasts was performed. Breast tomosynthesis acquisitions were obtained and reviewed. This study was read with the assistance of a computer-aided detection system. Tissue density: There are scattered areas of fibroglandular density. Findings: No suspicious masses, malignant appearing calcifications, skin thickening or other abnormalities are present. No significant change from the prior exam. IMPRESSION: No suspicious mammographic findings. Recommendation: 1. Routine Screening, Bilateral Assessment: ACR BI-RADS 2 - BENIGN FINDING(S) Ordered By: CYNTHIA CHEUNG Interpreted By: Ander Phillips, 10/15/2022 7:09 AM Cynthia Cheung PUBLIC RELATIONS INTERN MAMMO Final Res ult * HEPATITIS C ANTIBODY W/RFX TO HCV RNA (02/19/2022 1:54 PM CDT) HEPATITIS C AB 0.1 0.0 - 0.9 s/co ratio [facility] 1 INTERPRETATION Comment [facility] 1 Comment: Negative Not infected with HCV, unless recent infection is suspected or other evidence exists to indicate HCV infection. 02/19/2022 1:54 PM CDT 02/19/2022 Narrative [facility] - 02/20/2022 8:07 AM CDT Performed at: - [facility] [address] [id number] Machine Printer: Ruperto Montes PhD, Phone: [phone] Cynhtia Cheung NP LABORATORY Final Res ult [facility] [address] [place] [address] [facility] * COLOGUARD (EXACT SCIENCE) (10/04/2021 6:45 PM HEAT TREATING BLUER) COLOGUARD RESULT Negative Negative [facility] (CLIA #:[id number]) Comment: NEGATIVE TEST RESULT. A negative Cologuard result indicates a low likelihood that a colorectal cancer (CRC) or advanced adenoma (adenomatous polyps with more advanced pre-malignant features) is present. The chance that a person with a negative Cologuard test has a colorectal cancer is less than 1 in 1500 (negative predictive value >99.9%) or has an advanced adenoma is less than 5.3% (negative predictive value 94.7%). These data are based on a prospective cross-sectional study of 10,000 individuals at average risk for colorectal cancer who were screened with both Cologuard and colonoscopy. (Sánchez Armas al, N Engl J Med 2014;370(14):4401-1089) The normal value (reference range) for this assay is negative. COLOGUARD RE-SCREENING RECOMMENDATION: Periodic colorectal cancer screening is an important part of preventive healthcare for asymptomatic individuals at average risk for colorectal cancer. Following a negative Cologuard result, the [place] [employer] and U.S. Multi-Society Task Force screening guidelines recommend a Cologuard re-screening interval of 3 years. References: [place] [employer] Guideline for Colorectal Cancer Screening: https://www.cancer.org/cancer/gupbz-zqastt-iyjlhr/jfyflnhkg-rugsrnwbj-yfjqloq/ac s-rec ommendations.html.; Galileo DK, Carlos CR, Delmis HigueraK, Colorectal Cancer Screening: Recommendations for Physicians and Patients from the U.S. Multi-Society Task Force on Colorectal Cancer Screening , Am J Gastroenterology 2017; 112:8661-3890. TEST DESCRIPTION: Composite algorithmic analysis of stool DNA-biomarkers with hemoglobin immunoassay. Quantitative values of individual biomarkers are not reportable and are not associated with individual biomarker result reference ranges. Cologuard is intended for colorectal cancer screening of adults of either sex, 45 years or older, who are at average-risk for colorectal cancer (CRC). Cologuard has been approved for use by the U.S. FDA. The performance of Cologuard was established in a cross sectional study of average-risk adults aged 50-84. Cologuard performance in patients ages 45 to 49 years was estimated by sub-group analysis of near-age groups. Colonoscopies performed for a positive result may find as the most clinically significant lesion: colorectal cancer [4.0%], advanced adenoma (including sessile serrated polyps greater than or equal to 1cm diameter) [20%] or non- advanced adenoma [31%]; or no colorectal neoplasia [45%]. These estimates are derived from a prospective cross-sectional screening study of 10,000 individuals at average risk for colorectal cancer who were screened with both Cologuard and colonoscopy. (Sánchez Juan. et al, N Engl J Med 2014;370(14):2387-2391.) Cologuard may produce a false negative or false positive result (no colorectal cancer or precancerous polyp present at colonoscopy follow up). A negative Cologuard test result does not guarantee the absence of CRC or advanced adenoma (pre-cancer). The current Cologuard screening interval is every 3 years. ([place] [employer] and U.S. Multi-Society Task Force). Cologuard performance data in a 10,000 patient pivotal study using colonoscopy as the reference method can be accessed at the following location: www.[employer].com/results. Additional description of the Cologuard test process, warnings and precautions can be found at www.wedgiesogCoupadrd.com. STOOL STOOL SPECIMEN / Unknown 10/04/2021 6:45 PM HEAT TREATING BLUER 10/06/2021 10:30 AM HEAT TREATING BLUER Cynthia Mary Weinacht PUBLIC RELATIONS INTERN BODY FLUIDS AND STOOLS OR DERABLES Final Result [facility] ([facility]) [address] [place] [address], [facility] (CLIA #:[id number]) [address] [place] [address] * COLONOSCOPY GENERIC (08/25/2006) 08/25/2006 Narrative 08/25/2006 Ordered by an unspecified provider. us Documents Scanned SCANNING Final Result from Last 3 Months or Most Recently Relevant to Health Maintenance Insurance [facility] Care Teams Drafting Clerk Relationship Specialty Start Date End Date Baldomero Gibson MD [facility] [facility] [address] [place] [address] PCP - General FAMILY PRACTICE 03/18/23
--- OUTSIDE RECORDS SUMMARY | 2025-03-25 07:52 | XMS_ITS | Encounter Summary ---
Author Organization [facility] Address [address] [place] [address] Care Team Providers Care Public Safety Officer Name Role Phone Cynthia Cheung NP Primary Care Provider [phone] -[phone] Baldomero Gibson MD Primary Care Provider +1- [phone] Encounter Details Date Type Department Care Team (Late st Contact Info) Description 01/22/[address] [facility] Family Medicine [facility] [address] [place] [address] [place], [facility] Provider 2022 Annual Wellness Visit Social History Tobacco Use Types Packs/Day Years Used Date Smoking Tobacco: Never Smokeless Tobacco: Never Alcohol Use Standard Drinks/Week Comments Not Currently 0 (1 standard drink = 0.6 oz pur e alcohol) PHQ-2 Answer Date Recorded PHQ-2 Score - If the patient scores above 3, please move on to questions 3-9 0 01/22/2022 Comments No Sex and Gender Information Value Date Recorded Sex Assigned at Not on file Legal Sex Female 12:53 PM CDT Gender Identity Female 09/26/2021 1:17 PM BEVERAGE INSPECTION MACHINE TENDER Sexual Orientation Not on file COVID-19 Exposure Response Date Recorded In the last 10 days, have yo u been in contact with someone who was confirmed or suspected to have Coronavirus/COVID-19? No / Unsure 01/22/2022 1:12 PM CDT documented as of this encounter Plan of Treatment Not on file documented as of this encounter Visit Diagnoses Not on filedocumented in this encounter Additional Health Concerns Assessment Noted Time PHQ-9 Depression Total Score: 0 01/23/20 1:45 PM CDT documented as of this encounter Care Teams Public Safety Officer Relationship Specialty Start Date End Date Cynthia Cheung NP [address] [place] [address] PCP - General NURSE PRACTITIONER 08/30/21 03/17/23 Baldomero Gibson MD [address] [facility] [address] [place] [address] PCP - General FAMILY PRACTICE 03/18/23 documented as of this encounter
== END 2025-03-25 07:50 | disposition home or self-care (01) ==
LOC: ANHAUDIO 07:50
PROVIDERS: PCP Family Medicine; Visit Provider Family Medicine
DX: J31.0 Chronic rhinitis (principal); R09.81 Nasal congestion; R09.82 Postnasal drip; K21.9 Gastro-esophageal reflux disease without esophagitis; H90.3 Sensorineural hearing loss, bilateral
CPT/HCPCS: 92557; 92567